=== PATIENT | female | born 1950 | race Caucasian/White ===

== ENCOUNTER 2018-02-10 13:07 | Day surgery (SDC) | payer MEDICARE, OTHER ==
[~2018-02-10] VITALS: Ht 157.5 cm; Wt 80.0 kg
[~2018-02-10 13:07] MED LIST: ALLER-TEC D 5-1 EACH; Amitriptyline100 MG; CYCL10 PO; DIPH12.5EL; ERYT250; ESOM20; Excedrin Extra1 EACH; FISH1000 PO; MELO7.5 PO; METO10 PO; OCUVITE EYE +1 EACH PO; Prilosec Otc20 MG; Restoril15 MG; TRAM50 PO; VITAMIN D-32000 UNIT; ZOLP10 PO
== END 2018-02-10 14:55 | disposition home or self-care (01) ==
LOC: ORSCSDS 13:07
PROVIDERS: Internal Medicine Gastroenterology
PROC: 0D758ZZ Dilation of Esophagus, Via Natural or Artificial Opening Endoscopic (ICD-10-PCS; principal; 2018-02-10 14:45)
PROC: 0DB58ZX Excision of Esophagus, Via Natural or Artificial Opening Endoscopic, Diagnostic (ICD-10-PCS; principal; 2018-02-10 14:45)
DX: K22.70 Barrett's esophagus without dysplasia (principal); K22.2 Esophageal obstruction; K44.9 Diaphragmatic hernia without obstruction or gangrene; R13.14 Dysphagia, pharyngoesophageal phase; E66.9 Obesity, unspecified; G47.30 Sleep apnea, unspecified; Z68.32 Body mass index [BMI] 32.0-32.9, adult; Z87.891 Personal history of nicotine dependence; Z79.899 Other long term (current) drug therapy
CPT/HCPCS: 88305; J7120

== ENCOUNTER 2023-01-19 08:12 | Day surgery (SDC) | payer MEDICARE, OTHER ==
[~2023-01-19] VITALS: Ht 157.5 cm; Wt 92.7 kg
[~2023-01-19 08:12] MED LIST changes: +AMIT25 PO; +Alendronate Sod70 MG PO; +OMEP20ER PO; +TEMA30 PO
[2023-01-19] MEDS ORDERED: OMEP20ER PO (08:37)
--- NOTE | 2023-01-19 10:00 | NUR ---
History, Chart, Medications and Allergies reviewed before start of procedure. Lungs clear T/O to Auscultation. Patient confirms NPO status and agrees with scheduled surgery. Pre-Op teaching done. Pt verbalizes understanding. Patient reports completing Chlorhexadine shower X2 prior to admission to hospital.
--- NOTE | 2023-01-19 10:30 | NUR ---
PT REFUSED OBIE HOSE. DISCUSSED WITH PATIENT THE REASON FOR THE USE OF OBIE HOSE DURING SURGERY. PT STILL DECLINES. PAS STOCKINGS PLACED BUT NOT OBIE HOSE.
--- NOTE | 2023-01-19 11:16 | NUR ---
PT DENTURES REMOVED AND PLACED IN PACU. PT HEARING AIRD AND GLASSES PLACED IN PTS RED DUFFLE BAG AND PLACED IN PACU. PT TAKEN TO OR BY MORENA DURHAM.
--- NOTE | 2023-01-19 12:07 | NUR ---
01/19/23 1207 MORENA COOPER ABDUCTER CANAL BLOCK PERFORMED IN PE-OP
--- NOTE | 2023-01-19 15:00 | NUR ---
PATIENT ARRIVED TO ROOM VIA BED. AQUACEL DRESSING TO LEFT KNEE, C/D/I. POLAR PACK IN PLACE. PATIENT HAD SPINAL FOR SURGERY ALTHOUGH HAS FULL SENSATION TO BLE AT THIS TIME. WIGGLES FEET. REPORTS PAIN 2/10 AT THIS TIME, REQUESTING PAIN MEDICATION. WILL MEDICATE PER EMAR. ORIENTED TO ROOM & CALL LIGHT, IN REACH.
--- NOTE | 2023-01-19 18:39 | NUR ---
SHIFT SUMMARY NO ACUTE CHANGES SINCE ARRIVAL TO UNIT. AQUACEL TO LEFT KNEE, C/D/I. TOELRATING PO DIET WELL, VOIDING WELL. PAIN MANAGMENT HAS BEEN DIFFICULT FOR PATIENT. PATIENT TAKES AAPPROX 400MG TRAMADOL PER DAY ON A REGULAR BASIS, REQUESTED TO HAVE TRAMADOL ORDERED HERE, MD AGREEABLE AND ORDERS ENETERED, ATTEMPTING TO GET AHEAD OF THE PAIN. CURRENTLY 03/25. PATIENT HAS NOT BEEN OOB YET, CONTINUES TO REPORT SLIGHT NUMBNESS TO BOTTOM OF LEFT FOOT. POLAR PACK IN PLACE. CALL LIGHT IN REACH, WILL REPORT TO ONCOMING RN AT 1900.
[2023-01-20 04:23] LABS: BASOPHILS ABSOLUTE AUTO 0.01 K/mm3 (0.00-0.23); BASOPHILS PERCENT AUTO 0 % (0-2); EOSINOPHILS PERCENT AUTO 0 % (0-6); Hematocrit 39.1 % (33.0-51.0); Hemoglobin 12.8 g/dL (11.5-16.0); IMMATURE GRAN ABSOLUTE AUTO 0.06 K/mm3 (0.00-0.10); IMMATURE GRAN PERCENT AUTO 0 % (0-1); LYMPHOCYTES ABSOLUTE AUTO 1.24 K/mm3 (0.84-5.20); LYMPHOCYTES PERCENT AUTO 9 % (21-46); MONOCYTES ABSOLUTE AUTO 0.89 K/mm3 (0.16-1.47); MONOCYTES PERCENT AUTO 6 % (4-13); Mean Corpuscular HGB 32.2 pg (26.0-34.0); Mean Corpuscular HGB Conc 32.7 g/dL (31.5-36.5); Mean Corpuscular Volume 99 fL (80-100); Mean Platelet Volume 10.6 fL (9.1-12.4); NEUTROPHILS ABSOLUTE AUTO 12.29 K/mm3 (1.96-9.15); NEUTROPHILS PERCENT AUTO 85 % (41-73); Platelet Count 168 K/mm3 (150-400); RDW Coefficient Variation 13.2 % (11.7-14.2); Red Blood Cell Count 3.97 M/mm3 (3.80-5.20); White Blood Cell Count 14.49 K/mm3 (4.00-11.30)
--- NOTE | 2023-01-20 04:55 | NUR ---
POD1 LEFT TKA. SENSATION AND CIRCULATION REMAINS INTACT IN LLE. AQUACEL REMAINS C/D/I. VSS. PT DID NOT SLEEP MUCH T/O THE NIGHT. PAIN DIFFICULT TO MANAGE, MEDICATED WITH PRN'S MULTIPLE TIMES. CRYO REMAINS IN PLACE. PT ABLE TO AMBULATE TO BSC MULTIPLE TIMES TO VOID W/O DIFFICULTY. PT TOLLERATING PO INTAKE W/O N/V. PLAN FOR PT TO WORK WITH PT/OT TODAY AND D/C HOME. NO ACUTE EVENTS NOTED. THE PATIENT IS CURRENTLY RESTING, IN NO DISTRESS, CALL LIGHT IN REACH
[2023-01-20 06:38] LABS: Bun/Creatinine Ratio 21.2 (12.0-20.0); Calcium, Blood 9.4 mg/dL (8.5-10.1); Creatinine, Blood 0.66 mg/dL (0.40-1.00); Magnesium, Blood 2.1 mg/dL (1.6-2.4); Potassium, Blood 4.2 mmol/L (3.5-5.5)
--- NOTE | 2023-01-20 08:10 | NUR ---
PATIENT REFUSED CHAIR FOR BREAKFAST. WAS UP IN CHAIR THIS AM AT SHIFT CHANGE.
--- NOTE | 2023-01-20 09:30 | NUR ---
PATIENT CLEARED THERAPY, HOWEVER DOES NOT HAVE A RIDE UNTIL THIS AFTERNOON ABOUT 1600. PHYSICAL THERAPY STATED THEY WOULD WORK WITH PATIENT AGAIN THIS AFTERNOON SINCE PATIENT WILL STILL BE HERE.
[2023-01-20] MEDS ORDERED: Norco 5-325 Ta1 EACH PO (16:32)
--- NOTE | 2023-01-20 17:00 | NUR ---
DISCHARGE PATIENT CLEARED THERPAY WELL THIS AM, SON ARRIVED, PHYSICAL THERAPIST MICHAEL TO ROOM TO DISCUSS THERPY AND EXERCISES WITH HIM. DISCUSSED DISCHARGE INSTRUCTIONS, SENT WITH PATIENT. SENT AQUACELS AND POLAR PACK WITH PATIENT. ESCORTED OUT VIA W/C.
== END 2023-01-20 16:53 | disposition home or self-care (01) ==
LOC: ORSCMMR 08:12 → ORD 09:30 → ORSCMMR 10:00 → ORD 12:00 → SURS 14:49 → ORSCMMR 01-20 16:53
PROVIDERS: Orthopaedic Surgery
PROC: 8E0Y0CZ Robotic Assisted Procedure of Lower Extremity, Open Approach (ICD-10-PCS; principal; 2023-01-19 10:00)
PROC: 0SRD0J9 Replacement of Left Knee Joint with Synthetic Substitute, Cemented, Open Approach (ICD-10-PCS; principal; 2023-01-19 10:00)
DX: M17.12 Unilateral primary osteoarthritis, left knee (principal); E66.9 Obesity, unspecified; Z68.38 Body mass index [BMI] 38.0-38.9, adult; I10 Essential (primary) hypertension; G47.33 Obstructive sleep apnea (adult) (pediatric); K21.9 Gastro-esophageal reflux disease without esophagitis; M79.7 Fibromyalgia; Z79.899 Other long term (current) drug therapy
CPT/HCPCS: 27447; 20985; S2900; 36415; 73560-LT; 80048; 83735; 85025; 97110; 97116; 97162; A9270; C1713; C1776; J0171; J0735; J1100; J1170; J1650; J2250; J2370; J2405; J2704; J2795; J3010; J7120

== ENCOUNTER 2023-04-08 12:59 | Day surgery (SDC) | payer MEDICARE, OTHER ==
[~2023-04-08] VITALS: Ht 154.9 cm; Wt 89.9 kg
[~2023-04-08 12:59] MED LIST changes: +Norco 5-325 Ta1 EACH PO
[2023-04-08] MEDS ORDERED: FISH OIL 1,2001 EAC7 PO (13:50)
[2023-04-08 15:24] VITALS: BP 133/71
== END 2023-04-08 15:15 | disposition home or self-care (01) ==
LOC: ORSCSDS 12:59
PROVIDERS: Internal Medicine Gastroenterology
PROC: 0DB58ZX Excision of Esophagus, Via Natural or Artificial Opening Endoscopic, Diagnostic (ICD-10-PCS; principal; 2023-04-08 14:45)
DX: K22.70 Barrett's esophagus without dysplasia (principal); G47.30 Sleep apnea, unspecified; K44.9 Diaphragmatic hernia without obstruction or gangrene; Z87.891 Personal history of nicotine dependence; Z79.899 Other long term (current) drug therapy
CPT/HCPCS: 88305; J2704; J7120

== ENCOUNTER 2023-09-15 09:21 | Inpatient (IN) | payer MEDICARE, OTHER ==
[~2023-09-15] VITALS: Ht 155 cm; Wt 93.4 kg
[2023-09-15] VITALS (8 sets, daily range): BP systolic 123–149; BP diastolic 49–69
[~2023-09-15 09:21] MED LIST changes: +FISH OIL 1,2001 EAC7 PO
--- NOTE | 2023-09-15 12:15 | NUR ---
History, Chart, Medications and Allergies reviewed before start of procedure.Patient confirms NPO status and agrees with scheduled surgery. Patient reports completing Chlorhexadine shower X2 prior to admission to hospital.Surgical site prepped with 2% Chlorhexidine cloth wipe.PATIENT WITH MULTIPLE ALLERGIES. HELD OXICONTIN. AWARE. TAPE PLACED TO RINGS AND CONSENT SIGNED PT DECLINES REMOVAL. PATIENT ADAMANTLY REFUSES OBIE MACEY. AWARE. SMALL UNOPEN RED SPOT TO TOP OF RIGHT FOOT. SHOWED DR. MARINO.
[2023-09-16 03:29] VITALS: BP 124/48
[2023-09-16 03:31] VITALS: BP 119/55
--- NOTE | 2023-09-16 04:27 | NUR ---
SHIFT SUMMARY PT POD 0 RIGHT KNEE REVISION. PT HAS RESTED OFF AND ON T/O THE NIGHT. PAIN MANAGED WITH MEDS PER EMAR. PT HAS BEEN RELUCTANT TO AMBULATE, BUT IS REPONSIVE TO EDUCATION FROM STAFF ON THE IMPORTANCE OF AMBULATION AFTER SURGERY. PT AMBULATED SOME IN THE LABOY AND TOLERATED WELL. DRESSING C/D/I TO RIGHT KNEE. PT TOLERATING PO INTAKE AND IS VOIDING. BED IN LOWEST POSITION, CALL LIGHT WITHIN REACH.
[2023-09-16 04:36] LABS: BASOPHILS ABSOLUTE AUTO 0.02 K/mm3 (0.00-0.23); BASOPHILS PERCENT AUTO 0 % (0-2); EOSINOPHILS PERCENT AUTO 0 % (0-6); Hemoglobin 12.8 g/dL (11.5-16.0); IMMATURE GRAN ABSOLUTE AUTO 0.07 K/mm3 (0.00-0.10); IMMATURE GRAN PERCENT AUTO 0 % (0-1); LYMPHOCYTES ABSOLUTE AUTO 1.69 K/mm3 (0.84-5.20); LYMPHOCYTES PERCENT AUTO 11 % (21-46); MONOCYTES ABSOLUTE AUTO 1.16 K/mm3 (0.16-1.47); MONOCYTES PERCENT AUTO 7 % (4-13); Mean Corpuscular HGB 32.4 pg (26.0-34.0); Mean Corpuscular Volume 101 fL (80-100); Mean Platelet Volume 10.7 fL (9.1-12.4); NEUTROPHILS ABSOLUTE AUTO 12.95 K/mm3 (1.96-9.15); NEUTROPHILS PERCENT AUTO 82 % (41-73); Platelet Count 217 K/mm3 (150-400); RDW Coefficient Variation 13.2 % (11.7-14.2); RDW Standard Deviation 49.2 fL (35.1-46.3); Red Blood Cell Count 3.95 M/mm3 (3.80-5.20); White Blood Cell Count 15.89 K/mm3 (4.00-11.30)
[2023-09-16 05:09] LABS: Bun/Creatinine Ratio 13.2 (12.0-20.0); Creatinine, Blood 0.76 mg/dL (0.40-1.00); Potassium, Blood 4.2 mmol/L (3.5-5.5)
[2023-09-16 07:29] VITALS: BP 120/59
[2023-09-16 14:31] VITALS: BP 118/56
--- NOTE | 2023-09-16 14:45 | NUR ---
Pt. is awake and sitting in the chair when she welcomes my visit. Pt. displays evidence of being guarded at first. Facilitated a lie review. Listened with empathy and a calming presence and in the process rapport is established. Pt. displays evidence of engagement and trust. 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 Prayed with Pt. Pt. verbalized gratitude for the spiritual care visit.
--- NOTE | 2023-09-16 16:04 | NUR ---
SHIFT SUMMARY PT A&OX4, VSS/RA, URIEL PO, VOIDING, AMB 1 PP MOD ASSIST WITH FWW/GB TO BRP-WEAK TRANSFERRING/AMBULATION/REQUIRES CUES, UP TO CHAIR T/O SHIFT-ELEVATED AND POLAR ROSE MARIE ON, PHYSICAL THERAPY EVAL'D X2/WILL ASSESS AGAIN IN MORNING, PAIN MANAGED WITH DILAUDID PO 2 MG AND ULTRAM 50 MG - Q4/PRN. PT REP SHE REFUSES SNF. WILL REPORT TO ONCOMING NOC RN.
[2023-09-16 19:51] VITALS: BP 144/67
[2023-09-17 03:25] VITALS: BP 135/61
--- NOTE | 2023-09-17 06:26 | NUR ---
SHIFT SUMMARY NOC. PT POD 2 FOR RIGHT KNEE REVISION. AQUACEL DRESSING IS C/D/I. PT HAD DIFFICULT TIME TRANSFERING FROM COMMODE BACK TO BED AND WAS 3 PERSON ASSIST. PT MEDICATED FOR PAIN WITH RELIEF. PT VOIDING URINE. PT DENIES CP OR SOB. PT RESTED WITH CALL LIGHT IN REACH.
[2023-09-17 07:35] VITALS: BP 138/57
--- NOTE | 2023-09-17 13:34 | NUR ---
Pt. is sitting up in a chair and anticipating discharge when she welcomes my visit. Pt. is pleasant but verbalizes that her son will not be able to pick her up until after 5pm. Listen with interest and empathy. Pt. verbalizes that she has no other concerns but welcomed prayer as she goes home to recover. Prayed with Pt. Pt. verbalized gratitude for the spiritual care visit.
[2023-09-17] MEDS ORDERED: ELIQUIS2.5 MG PO (16:18)
[2023-09-17] MEDS ORDERED: HYDMOR2 PO (16:18)
[2023-09-17 16:19] VITALS: BP 106/94
[2023-09-17] MEDS ORDERED: TRAM50 PO (16:19)
--- NOTE | 2023-09-17 18:19 | NUR ---
DISCHARGE SUMMARY PT A&OX4, VSS/RA, URIEL PO, VOIDING, AMB 1 PP MOD ASSIST W/FWW & GB, PAIN MANAGED, IV DC'D. POD2 R KNEE REVISION, AQUACEL DRESSING CDI. DC INS PROVIDED PT REP UNDERSTANDING THOSE INSTRUCTIONS. LEFT FLOOR VIA WC WITH ALL PERSONAL POSSESSIONS INCLUDING DC PACKET, 3 SCRIPTS, AQUACEL DRESSINGS, TO GO HOME WITH SON. HAD MULTIPLE CONVERSATIONS WITH PT TRYING TO ENCOURAGE HER TO GO TO SNF INSTEAD OF HOME, AT LEAST FOR A SHORT TIME; PT REP SHE WILL BE FINE GOING HOME ALONE SINCE SHE HAS HOME HEALTH WITH PT, AND DOES NOT WANT TO GO TO SNF.
== END 2023-09-17 18:00 | disposition home or self-care (01) | DRG 468 ==
LOC: SURS 09:21 → PRE IP 11:00 → SURS 18:03
PROVIDERS: ADMIT Orthopaedic Surgery
PROC: 0SRC0J9 Replacement of Right Knee Joint with Synthetic Substitute, Cemented, Open Approach (ICD-10-PCS; 2023-09-15)
PROC: 0SPC0JZ Removal of Synthetic Substitute from Right Knee Joint, Open Approach (ICD-10-PCS; principal; 2023-09-15 11:00)
DX: T84.022A Instability of internal right knee prosthesis, initial encounter (principal); F32.A Depression, unspecified; G47.33 Obstructive sleep apnea (adult) (pediatric); K21.9 Gastro-esophageal reflux disease without esophagitis; Y83.8 Other surgical procedures as the cause of abnormal reaction of the patient, or of later complication, without mention of misadventure at the time of the procedure; I27.20 Pulmonary hypertension, unspecified; I10 Essential (primary) hypertension; G89.29 Other chronic pain; E66.9 Obesity, unspecified; Z90.49 Acquired absence of other specified parts of digestive tract; Z90.710 Acquired absence of both cervix and uterus; Z96.653 Presence of artificial knee joint, bilateral; Z68.38 Body mass index [BMI] 38.0-38.9, adult
CPT/HCPCS: 36415; 73560-RT; 73562-RT; 80048; 85025; 97110; 97116; 97162; A9270; C1713; C1776; J0171; J1100; J2371; J2405; J2704; J2765; J2795; J3010; J7120

== ENCOUNTER → 2025-04-05 | Outpatient (CLI) | payer MEDICARE, OTHER ==
[~2025-04-05] MED LIST changes: +ELIQUIS2.5 MG PO; +HYDMOR2 PO
[2025-04-05 08:53] LABS: Source, Urine Clean Catch
[2025-04-05 10:58] LABS: Appearance, Urine Clear (Clear); Bilirubin, Urine Neg (Neg); Blood, Urine Neg (Neg); Color, Urine Yellow (P-Yellow); Glucose Qualitative, Urine Neg (Neg); Ketones, Urine Neg (Neg); Leukocyte Esterase, Urine 2+ (Neg); Nitrite, Urine Neg (Neg); Protein, Urine Neg (Neg); Urobilinogen, Urine NORM (Normal)
[2025-04-05 11:06] LABS: Bacteria Few /hpf; Red Blood Cells, Urine Not Seen /hpf (0-2); Squamous Epithelial Cells Few /hpf (Few)
== END | disposition home or self-care (01) ==
LOC: LAB 08:52 → LAB SHORT 08:52 → EDSTATUS 03-29 10:15 → LAB FUT 03-29 10:15
PROVIDERS: Internal Medicine
DX: N39.0 Urinary tract infection, site not specified (principal)
CPT/HCPCS: 81001; 87086